=== PATIENT | female | born 1960 | race Caucasian/White ===

== ENCOUNTER 2020-09-22 09:59 | Inpatient (IN) ==
[2020-09-22] MEDS ORDERED: CeFAZolin Syr 2,000MG/20 ML 2,000 MG/20 ML SYRINGE IVPB ONE (10:31)
[2020-09-22] MEDS: Ringers Solution, Lactated 1,000 ML IVC SCH ×3 (10:45→19:50)
[2020-09-22] MEDS ORDERED: Famotidine 20 MG/2 ML VIAL IVP ONE (10:47)
[2020-09-22] MEDS ORDERED: *HR* Methadone 10 MG TABLET PO ONE (10:48)
[2020-09-22] MEDS ORDERED: *HR* Rocuronium Bromide 50 MG/5 ML VIAL ONE (11:50)
[2020-09-22] MEDS ORDERED: Lidocaine HCL 4 ML Topical Solution (Laryng-O-Jet Kit Sterile Pak) TP ONE (11:50)
[2020-09-22] MEDS ORDERED: Ondansetron 4 MG/2 ML VIAL ONE (11:50)
[2020-09-22] MEDS ORDERED: Lidocaine -MPF 2% 2 ML VIAL ONE (11:50)
[2020-09-22] MEDS ORDERED: *HR* FentaNYL (PF) 100 MCG/2 ML VIAL ONE (11:51)
[2020-09-22] MEDS ORDERED: *HR* Remifentanil 1 MG VIAL IVP ONE (11:51)
[2020-09-22] MEDS ORDERED: *HR* Midazolam HCl 2 MG/2 ML VIAL ONE (11:52)
[2020-09-22] MEDS ORDERED: *HR* Propofol 200 MG/20 ML VIAL IVP ONE (11:52)
[2020-09-22] MEDS ORDERED: *HR* HYDROmorphone PF 0.5 MG/0.5 ML SYRINGE IVP PRN (12:15)
[2020-09-22] MEDS ORDERED: Ondansetron 4 MG/2 ML VIAL IVP PRN ×2 (12:15→18:35)
[2020-09-22] MEDS ORDERED: EPHEDrine 50 MG/ML VIAL ONE (14:27)
[2020-09-22] MEDS ORDERED: Bacitracin 50,000 UNIT, Polymyxin B Sulfate 500,000 UNIT, Sodium Chloride IRRigation 1,... IR ONE (14:35)
[2020-09-22] MEDS ORDERED: *HR* Vasopressin 20 UNIT/ML VIAL ONE (14:42)
[2020-09-22] MEDS ORDERED: Neostigmine Methylsulfate 3 MG/3 ML SYRINGE ONE (16:21)
[2020-09-22] MEDS ORDERED: flumazeniL 0.5 MG/5 ML VIAL IVP ONE (17:29)
[2020-09-22] MEDS ORDERED: Sugammadex Sodium 200 MG/2 ML VIAL IV ONE (17:41)
[2020-09-22] MEDS ORDERED: Naloxone 0.4 MG/ML INJ IVP PRN (18:35)
[2020-09-22] MEDS ORDERED: *HR* OxyCODONE Immed Rel 5 MG TABLET PO PRN (18:35)
[2020-09-22] MEDS ORDERED: Acetaminophen 325 MG TABLET PO PRN (18:35)
[2020-09-22] MEDS ORDERED: *HR* HYDROcodone/Acet 5/325 mg TABLET PO PRN (18:35)
[2020-09-22] MEDS: Pregabalin 75 MG CAPSULE PO SCH (19:33)
[2020-09-23 01:09] LABS: Basophils % 0.2 %; Immature Granulocytes % 0.3 % (0-4); Monocytes % 3.6 %
[2020-09-23 01:11] LABS: Hematocrit 31.5 % (35.3-44.9); Immature Platelets 5.8 % (1.1-6.1); Lymphocytes # 0.8 K/mcL (0.6-4.6); Lymphocytes % 13.1 %; Mean Corpuscular HGB Conc 31.7 g/dL (31.6-35.5); Mean Corpuscular Hemoglobin 29.7 pg (28.0-33.3); Mean Corpuscular Volume 93.5 fL (83.0-100.0); Mean Platelet Volume 11.8 fL (9.4-12.4); Monocytes # 0.2 K/mcL (0.0-1.3); Neutrophils # 4.9 K/mcL (1.6-8.9); Red Blood Count 3.37 M/mcL (3.82-4.97); Red Cell Distribution Width 15.6 % (11.5-14.5); Segmented Neutrophils % 82.8 %; White Blood Count 5.9 K/mcL (4.3-11.1)
[2020-09-23 01:12] LABS: Platelet Count 55 K/mcL (140-400)
[2020-09-23 01:27] LABS: BUN/Creatinine Ratio 19 (6-26); Blood Urea Nitrogen 16 mg/dL (8-23); Calcium 8.6 mg/dL (8.6-10.3); Carbon Dioxide 19 mEq/L (23-29); Chloride 106 mEq/L (98-107); Glucose 220 mg/dL (70-105); Osmolality,Calculated 290 (280-300); Potassium 4.6 mEq/L (3.5-5.1); Sodium 136 mEq/L (136-145); eGFR For African Americans > 60 (> 60); eGFR For Non-African Americans > 60 (> 60)
[2020-09-23] MEDS: CeFAZolin 2 GM/120 ML BAG IVPB SCH ×2 (01:31→11:08)
[2020-09-23] MEDS: Ringers Solution, Lactated 1,000 ML IVC SCH (06:16)
[2020-09-23] MEDS ORDERED: Isovue-370 500 ML BOTTLE IVP ONE (08:05)
[2020-09-23] MEDS: Pregabalin 75 MG CAPSULE PO SCH ×2 (09:20→22:59)
[2020-09-23] MEDS: *HR* Metformin 500 MG TABLET PO SCH ×2 (09:20→17:42)
[2020-09-23 12:07] LABS: Albumin 2.9 g/dL (3.5-5.7); Albumin/Globulin Ratio 0.9 (1.1-2.2); Bilirubin,Direct 0.9 mg/dL (0.0-0.2); Bilirubin,Indirect 1.4 mg/dL (0.0-1.0); Bilirubin,Total 2.3 mg/dL (0.3-1.0); Globulin 3.2 g/dL (2.4-3.5); Total Protein 6.1 g/dL (6.4-8.9)
[2020-09-24] MEDS: *HR* Metformin 500 MG TABLET PO SCH ×2 (09:13→16:36)
[2020-09-24] MEDS: Pregabalin 75 MG CAPSULE PO SCH ×2 (09:13→20:16)
[2020-09-24 09:19] LABS: Hemoglobin 9.7 g/dL (11.5-15.4); Immature Granulocytes % 0.5 % (0-4); Mean Corpuscular Volume 92.6 fL (83.0-100.0); Red Cell Distribution Width 15.9 % (11.5-14.5)
[2020-09-24 09:21] LABS: Basophils % 0.4 %; Eosinophils # 0.1 K/mcL (0.0-0.6); Eosinophils % 1.3 %; Immature Platelets 5.5 % (1.1-6.1); Lymphocytes # 1.3 K/mcL (0.6-4.6); Mean Corpuscular HGB Conc 32.3 g/dL (31.6-35.5); Mean Corpuscular Hemoglobin 29.9 pg (28.0-33.3); Mean Platelet Volume 12.2 fL (9.4-12.4); Monocytes % 12.2 %; Neutrophils # 5.8 K/mcL (1.6-8.9); Red Blood Count 3.24 M/mcL (3.82-4.97); Segmented Neutrophils % 69.6 %; White Blood Count 8.3 K/mcL (4.3-11.1)
[2020-09-24 09:24] LABS: Platelet Count 63 K/mcL (140-400)
[2020-09-24 09:37] LABS: BUN/Creatinine Ratio 18 (6-26); Blood Urea Nitrogen 17 mg/dL (8-23); Calcium 8.6 mg/dL (8.6-10.3); Carbon Dioxide 26 mEq/L (23-29); Chloride 109 mEq/L (98-107); Glucose 132 mg/dL (70-105); Osmolality,Calculated 295 (280-300); Potassium 3.8 mEq/L (3.5-5.1); Sodium 141 mEq/L (136-145); eGFR For African Americans > 60 (> 60); eGFR For Non-African Americans > 60 (> 60)
[2020-09-24 11:08] LABS: Bilirubin,Urine Negative (Negative); Blood,Urine Negative (Negative); Clarity,Urine Clear (Clear); Color,Urine Yellow (Yellow); Glucose,Urine (UA) Normal (Normal); Ketones,Urine Negative (Negative); Leukocyte Esterase,Urine Negative (Negative); Nitrite,Urine Negative (Negative); Protein,Urine Negative (Neg-Trace); Specific Gravity,Urine 1.024 (1.010-1.025); Urobilinogen,Urine Normal (Normal)
[2020-09-24 12:05] LABS: Folate 14.8 ng/mL (3.0-16.0)
[2020-09-25] MEDS: Pregabalin 75 MG CAPSULE PO SCH ×2 (07:59→22:32)
[2020-09-25] MEDS: *HR* Metformin 500 MG TABLET PO SCH ×2 (07:59→16:27)
[2020-09-26] MEDS: Ringers Solution, Lactated 1,000 ML IVC SCH ×3 (07:29→14:11)
[2020-09-26] MEDS: Pregabalin 75 MG CAPSULE PO SCH ×2 (07:57→19:44)
[2020-09-26] MEDS: *HR* Metformin 500 MG TABLET PO SCH ×2 (07:57→17:04)
[2020-09-27] MEDS: Ringers Solution, Lactated 1,000 ML IVC SCH ×2 (07:13→08:05)
[2020-09-27] MEDS: *HR* Metformin 500 MG TABLET PO SCH (08:12)
[2020-09-27] MEDS: Pregabalin 75 MG CAPSULE PO SCH (08:13)
[2020-09-27 12:36] VITALS: BP 104/66
== END 2020-09-27 15:30 | DRG 517 ==
LOC: SAMDAY 09:59 → 3NENU 09:59
PROVIDERS: ADMIT Orthopaedic Surgery Orthopaedic Surgery of the Spine; ATTEND Orthopaedic Surgery Orthopaedic Surgery of the Spine

== ENCOUNTER 2021-07-09 16:31 | Inpatient (IN) ==
[2021-07-09] MEDS ORDERED: Isovue-370 500 ML BOTTLE IVP ONE (16:53)
[2021-07-09 17:17] LABS: Hemoglobin 11.9 g/dL (11.5-15.4); Red Cell Distribution Width 17.6 % (11.5-14.5); White Blood Count 5.9 K/mcL (4.3-11.1)
[2021-07-09 17:19] LABS: Hematocrit 36.7 % (35.3-44.9); Immature Platelets 4.1 % (1.1-6.1); Mean Corpuscular HGB Conc 32.4 g/dL (31.6-35.5); Mean Corpuscular Hemoglobin 33.4 pg (28.0-33.3); Mean Corpuscular Volume 103.1 fL (83.0-100.0); Mean Platelet Volume 10.8 fL (9.4-12.4); Red Blood Count 3.56 M/mcL (3.82-4.97)
[2021-07-09 17:28] LABS: INR 1.4; Prothrombin Time 15.2 Seconds (9.4-12.1)
[2021-07-09 17:31] LABS: Activated Partial Thrombo Time 32.3 Seconds (26.0-36.0)
[2021-07-09 17:48] LABS: BUN/Creatinine Ratio 18 (6-26); Blood Urea Nitrogen 25 mg/dL (8-23); Calcium 8.9 mg/dL (8.6-10.3); Carbon Dioxide 24 mEq/L (23-29); Chloride 102 mEq/L (98-107); Ethanol < 10 mg/dL (Less than 10); Glucose 189 mg/dL (70-105); Osmolality,Calculated 297 (280-300); Potassium 3.6 mEq/L (3.5-5.1); Sodium 139 mEq/L (136-145); Troponin I < 0.03 ng/mL (< 0.04); eGFR For African Americans 47 (> 60); eGFR For Non-African Americans 39 (> 60)
[2021-07-09 17:53] LABS: Bilirubin,Urine Negative (Negative); Blood,Urine Negative (Negative); Clarity,Urine Clear (Clear); Color,Urine Yellow (Yellow); Glucose,Urine (UA) Normal (Normal); Ketones,Urine Negative (Negative); Leukocyte Esterase,Urine Negative (Negative); Nitrite,Urine Negative (Negative); Protein,Urine Negative (Neg-Trace); Specific Gravity,Urine 1.013 (1.010-1.025); Urobilinogen,Urine Normal (Normal)
[2021-07-09] MEDS ORDERED: 0.9 % Sodium Chloride 1,000 ML IVC ONE (18:03)
[2021-07-09] MEDS ORDERED: Aspirin 81 MG TAB.CHEW PO STA (21:46)
[2021-07-09] MEDS ORDERED: Naloxone 0.4 MG/ML INJ IVP PRN (23:19)
[2021-07-09] MEDS ORDERED: D5% in Water 1,000 ML IVC PRN (23:30)
[2021-07-09] MEDS ORDERED: Dextrose 4 GM Chewable Tablets PO PRN ×2 (23:30)
[2021-07-09] MEDS ORDERED: *HR* Dextrose 50 % in Water (Syg) 50 ML SYRINGE IVP PRN (23:30)
[2021-07-10] MEDS ORDERED: Albumin 25% 25gram/100mL 25 GM/100 ML IV.SOLN IVPB ONE (00:21)
[2021-07-10] MEDS ORDERED: Lactulose Oral Soln 20 GM/30 ML UDC PO SCH (00:45)
[2021-07-10] MEDS: Insulin LISPRO 300 UNITS/3 ML VIAL SUBQ SCH ×4 (01:10→17:56)
[2021-07-10 03:53] LABS: Hematocrit 29.6 % (35.3-44.9); Mean Corpuscular HGB Conc 33.4 g/dL (31.6-35.5); Mean Corpuscular Volume 101.7 fL (83.0-100.0); Mean Platelet Volume 11.2 fL (9.4-12.4); Red Blood Count 2.91 M/mcL (3.82-4.97); Red Cell Distribution Width 17.7 % (11.5-14.5); White Blood Count 4.2 K/mcL (4.3-11.1)
[2021-07-10 03:54] LABS: Hemoglobin 9.9 g/dL (11.5-15.4); Platelet Count 52 K/mcL (140-400)
[2021-07-10 04:09] LABS: Calcium 8.7 mg/dL (8.6-10.3); Magnesium 1.8 mg/dL (1.6-2.6); Phosphorous 3.1 mg/dL (2.7-4.5); Potassium 3.4 mEq/L (3.5-5.1)
[2021-07-10 04:34] LABS: Folate 21.4 ng/mL (3.0-16.0)
[2021-07-10] MEDS ORDERED: Aspirin 81 MG TAB.CHEW PO SCH (09:00)
[2021-07-10] MEDS: Lactulose Oral Soln 20 GM/30 ML UDC PO SCH ×2 (09:43→20:21)
[2021-07-10] MEDS: Pregabalin 75 MG CAPSULE PO SCH ×2 (09:43→20:21)
[2021-07-10 13:18] LABS: Albumin 2.9 g/dL (3.5-5.7); Albumin/Globulin Ratio 1.1 (1.1-2.2); Bilirubin,Direct 1.1 mg/dL (0.0-0.2); Bilirubin,Indirect 2.1 mg/dL (0.0-1.0); Bilirubin,Total 3.2 mg/dL (0.3-1.0); Globulin 2.6 g/dL (2.4-3.5); Total Protein 5.5 g/dL (6.4-8.9)
[2021-07-11] MEDS: Insulin LISPRO 300 UNITS/3 ML VIAL SUBQ SCH ×4 (01:01→19:06)
[2021-07-11 03:13] LABS: Basophils % 0.6 %; Immature Granulocytes % 0.2 % (0-4); Red Blood Count 3.14 M/mcL (3.82-4.97)
[2021-07-11 03:15] LABS: Eosinophils # 0.2 K/mcL (0.0-0.6); Eosinophils % 4.5 %; Hematocrit 32.1 % (35.3-44.9); Hemoglobin 10.4 g/dL (11.5-15.4); Immature Platelets 4.1 % (1.1-6.1); Lymphocytes % 21.6 %; Mean Corpuscular HGB Conc 32.4 g/dL (31.6-35.5); Mean Corpuscular Hemoglobin 33.1 pg (28.0-33.3); Mean Corpuscular Volume 102.2 fL (83.0-100.0); Mean Platelet Volume 10.5 fL (9.4-12.4); Monocytes # 0.7 K/mcL (0.0-1.3); Monocytes % 14.3 %; Neutrophils # 2.8 K/mcL (1.6-8.9); Platelet Count 55 K/mcL (140-400); Red Cell Distribution Width 17.9 % (11.5-14.5); Segmented Neutrophils % 58.8 %; White Blood Count 4.7 K/mcL (4.3-11.1)
[2021-07-11 03:31] LABS: Albumin 2.8 g/dL (3.5-5.7); Bilirubin,Total 3.4 mg/dL (0.3-1.0); Calcium 8.7 mg/dL (8.6-10.3); Globulin 2.7 g/dL (2.4-3.5); Potassium 3.4 mEq/L (3.5-5.1); Total Protein 5.5 g/dL (6.4-8.9)
[2021-07-11] MEDS: Thiamine (B-1) 100 MG TABLET PO SCH (10:16)
[2021-07-11] MEDS: Pregabalin 75 MG CAPSULE PO SCH ×2 (10:16→21:19)
[2021-07-11] MEDS: Lactulose Oral Soln 20 GM/30 ML UDC PO SCH ×2 (10:16→21:19)
[2021-07-11] MEDS: Melatonin 3 MG TABLET PO PRN (21:18)
[2021-07-12] MEDS: Insulin LISPRO 300 UNITS/3 ML VIAL SUBQ SCH ×4 (02:25→16:53)
[2021-07-12] MEDS ORDERED: Acetaminophen 325 MG TABLET PO ONE (03:19)
[2021-07-12] MEDS: Lactulose Oral Soln 20 GM/30 ML UDC PO SCH ×2 (08:06→22:41)
[2021-07-12] MEDS: Thiamine (B-1) 100 MG TABLET PO SCH (08:06)
[2021-07-12] MEDS: Pregabalin 75 MG CAPSULE PO SCH ×2 (08:06→22:40)
[2021-07-12 10:16] LABS: Hemoglobin 11.3 g/dL (11.5-15.4); Immature Granulocytes % 0.4 % (0-4); Mean Corpuscular Volume 101.8 fL (83.0-100.0)
[2021-07-12 10:18] LABS: Basophils % 0.6 %; Eosinophils # 0.3 K/mcL (0.0-0.6); Eosinophils % 6.6 %; Hematocrit 33.6 % (35.3-44.9); Immature Platelets 3.5 % (1.1-6.1); Lymphocytes # 1.1 K/mcL (0.6-4.6); Lymphocytes % 20.5 %; Mean Corpuscular HGB Conc 33.6 g/dL (31.6-35.5); Mean Corpuscular Hemoglobin 34.2 pg (28.0-33.3); Monocytes # 0.7 K/mcL (0.0-1.3); Monocytes % 13.8 %; Red Cell Distribution Width 17.7 % (11.5-14.5); Segmented Neutrophils % 58.1 %; White Blood Count 5.1 K/mcL (4.3-11.1)
[2021-07-12 10:24] LABS: Platelet Count 60 K/mcL (140-400)
[2021-07-12 10:42] LABS: Albumin 2.9 g/dL (3.5-5.7); Bilirubin,Total 3.7 mg/dL (0.3-1.0); Calcium 8.6 mg/dL (8.6-10.3); Globulin 2.8 g/dL (2.4-3.5); Potassium 3.4 mEq/L (3.5-5.1); Total Protein 5.7 g/dL (6.4-8.9)
[2021-07-12 17:16] LABS: Estimated Average Glucose 123 mg/dl; Hemoglobin A1C 5.9 %
[2021-07-12] MEDS: Melatonin 3 MG TABLET PO PRN (22:40)
[2021-07-13 00:41] LABS: Basophils % 0.4 %
[2021-07-13 00:43] LABS: Eosinophils # 0.3 K/mcL (0.0-0.6); Hematocrit 33.1 % (35.3-44.9); Hemoglobin 10.8 g/dL (11.5-15.4); Immature Granulocytes % 0.4 % (0-4); Immature Platelets 3.8 % (1.1-6.1); Lymphocytes # 0.9 K/mcL (0.6-4.6); Mean Corpuscular HGB Conc 32.6 g/dL (31.6-35.5); Mean Corpuscular Hemoglobin 32.7 pg (28.0-33.3); Mean Corpuscular Volume 100.3 fL (83.0-100.0); Mean Platelet Volume 11.1 fL (9.4-12.4); Monocytes # 0.7 K/mcL (0.0-1.3); Monocytes % 13.6 %; Neutrophils # 3.1 K/mcL (1.6-8.9); Red Cell Distribution Width 17.4 % (11.5-14.5); Segmented Neutrophils % 61.6 %
[2021-07-13 00:51] LABS: Platelet Count 49 K/mcL (140-400)
[2021-07-13 00:59] LABS: Alanine Aminotransferase 18 Units/L (7-52); Albumin 2.6 g/dL (3.5-5.7); Albumin/Globulin Ratio 0.9 (1.1-2.2); Alkaline Phosphatase 104 Units/L (34-104); Aspartate Amino Transferase 36 Units/L (13-39); BUN/Creatinine Ratio 13 (6-26); Bilirubin,Total 3.3 mg/dL (0.3-1.0); Blood Urea Nitrogen 14 mg/dL (8-23); Calcium 8.7 mg/dL (8.6-10.3); Carbon Dioxide 27 mEq/L (23-29); Chloride 105 mEq/L (98-107); Globulin 2.8 g/dL (2.4-3.5); Glucose 156 mg/dL (70-105); Osmolality,Calculated 292 (280-300); Potassium 3.2 mEq/L (3.5-5.1); Sodium 139 mEq/L (136-145); Total Protein 5.4 g/dL (6.4-8.9); eGFR For African Americans > 60 (> 60); eGFR For Non-African Americans 50 (> 60)
[2021-07-13] MEDS: Insulin LISPRO 300 UNITS/3 ML VIAL SUBQ SCH ×4 (03:05→16:47)
[2021-07-13] MEDS ORDERED: Potassium Chloride Elixir 20 MEQ/15 ML UDC PO ONE (07:03)
[2021-07-13] MEDS: Thiamine (B-1) 100 MG TABLET PO SCH (07:33)
[2021-07-13] MEDS: Lactulose Oral Soln 20 GM/30 ML UDC PO SCH ×2 (07:33→19:51)
[2021-07-13] MEDS: Pregabalin 75 MG CAPSULE PO SCH ×2 (07:33→19:51)
[2021-07-14] MEDS: Insulin LISPRO 300 UNITS/3 ML VIAL SUBQ SCH ×3 (03:36→12:25)
[2021-07-14] MEDS: Thiamine (B-1) 100 MG TABLET PO SCH (09:40)
[2021-07-14] MEDS: Pregabalin 75 MG CAPSULE PO SCH (09:40)
[2021-07-14] MEDS: Lactulose Oral Soln 20 GM/30 ML UDC PO SCH (09:40)
[2021-07-14] MEDS ORDERED: Acetaminophen 325 MG TABLET PO ONE (10:09)
[2021-07-14 15:35] VITALS: BP 100/65; PULSE 87; TEMP 97.9; O2SAT 92
[2021-07-14 16:11] LABS: Influenza A PCR Negative (Negative); Influenza B PCR Negative (Negative); Resp. Syncytial Virus PCR Negative (Negative)
[2021-07-14 16:12] LABS: SARS-CoV-2 by PCR (In House) Negative (Negative)
== END 2021-07-14 17:40 | DRG 441 ==
LOC: 3BNU 16:31 → EMEROOARM 16:31 → SUATTDRO 22:15 → 3BNU 22:52 → SUATTDRO 07-11 13:30
PROVIDERS: ADMIT Internal Medicine; ATTEND Internal Medicine

== ENCOUNTER 2021-09-26 17:27 | Inpatient (IN) ==
[2021-09-26 19:20] LABS: Hemoglobin 10.6 g/dL (11.5-15.4); Mean Corpuscular HGB Conc 33.1 g/dL (31.6-35.5); Mean Corpuscular Hemoglobin 31.6 pg (28.0-33.3); Mean Corpuscular Volume 95.5 fL (83.0-100.0); Red Blood Count 3.35 M/mcL (3.82-4.97)
[2021-09-26 19:22] LABS: Basophils % 0.1 %; Eosinophils # 0.1 K/mcL (0.0-0.6); Immature Granulocytes % 0.5 % (0-4); Immature Platelets 4.7 % (1.1-6.1); Lymphocytes # 0.7 K/mcL (0.6-4.6); Lymphocytes % 8.7 %; Mean Platelet Volume 10.9 fL (9.4-12.4); Monocytes # 0.9 K/mcL (0.0-1.3); Monocytes % 11.6 %; Neutrophils # 6.3 K/mcL (1.6-8.9); Red Cell Distribution Width 14.9 % (11.5-14.5); Segmented Neutrophils % 78.1 %
[2021-09-26 19:23] LABS: Platelet Count 88 K/mcL (140-400)
[2021-09-26 19:40] LABS: Calcium 8.9 mg/dL (8.6-10.3); Potassium 3.9 mEq/L (3.5-5.1)
[2021-09-26 20:35] LABS: VBG HCO3 23 mEq/L (21-27); VBG PCO2 33 mmHg (41-51); VBG PH 7.45 pH Units (7.32-7.42); VBG PO2 136 mmHg (25-50)
[2021-09-26] MEDS ORDERED: Isovue-370 500 ML BOTTLE IVP ONE (20:43)
[2021-09-26] MEDS ORDERED: 0.9 % Sodium Chloride 2,000 ML IV ONE (20:44)
[2021-09-26 21:19] LABS: Albumin 2.9 g/dL (3.5-5.7); Albumin/Globulin Ratio 0.8 (1.1-2.2); Bilirubin,Indirect 3.7 mg/dL (0.0-1.0); Bilirubin,Total 5.7 mg/dL (0.3-1.0); Globulin 3.8 g/dL (2.4-3.5); Total Protein 6.7 g/dL (6.4-8.9)
[2021-09-26 21:23] LABS: INR 1.6
[2021-09-26 21:26] LABS: Activated Partial Thrombo Time 28.4 Seconds (26.0-36.0)
[2021-09-27 00:13] LABS: Influenza A PCR Negative (Negative); Influenza B PCR Negative (Negative); Resp. Syncytial Virus PCR Negative (Negative)
[2021-09-27 00:14] LABS: SARS-CoV-2 by PCR (In House) Negative (Negative)
[2021-09-27] MEDS ORDERED: Naloxone 0.4 MG/ML INJ IVP PRN (01:24)
[2021-09-27] MEDS ORDERED: Acetaminophen 325 MG TABLET PO PRN (01:24)
[2021-09-27] MEDS ORDERED: Melatonin 3 MG TABLET PO PRN (01:24)
[2021-09-27] MEDS ORDERED: Ondansetron 4 MG/2 ML VIAL IVP PRN (01:24)
[2021-09-27] MEDS ORDERED: 0.9 % Sodium Chloride 1,000 ML IVC SCH (01:30)
[2021-09-27 03:13] LABS: Eosinophils # 0.1 K/mcL (0.0-0.6); Eosinophils % 1.6 %; Hematocrit 28.8 % (35.3-44.9); Hemoglobin 9.4 g/dL (11.5-15.4); Immature Granulocytes % 0.5 % (0-4); Immature Platelets 4.3 % (1.1-6.1); Lymphocytes # 0.5 K/mcL (0.6-4.6); Lymphocytes % 9.4 %; Mean Corpuscular HGB Conc 32.6 g/dL (31.6-35.5); Mean Corpuscular Hemoglobin 31.4 pg (28.0-33.3); Mean Corpuscular Volume 96.3 fL (83.0-100.0); Mean Platelet Volume 11.7 fL (9.4-12.4); Monocytes # 0.6 K/mcL (0.0-1.3); Monocytes % 10.8 %; Neutrophils # 4.4 K/mcL (1.6-8.9); Red Blood Count 2.99 M/mcL (3.82-4.97); Segmented Neutrophils % 77.7 %; White Blood Count 5.7 K/mcL (4.3-11.1)
[2021-09-27 03:19] LABS: INR 1.8; Prothrombin Time 19.7 Seconds (9.4-12.1)
[2021-09-27 03:22] LABS: Platelet Count 61 K/mcL (140-400)
[2021-09-27 03:30] LABS: Albumin 2.4 g/dL (3.5-5.7); Albumin/Globulin Ratio 0.7 (1.1-2.2); Bilirubin,Direct 1.7 mg/dL (0.0-0.2); Bilirubin,Indirect 3.3 mg/dL (0.0-1.0); Calcium 8.4 mg/dL (8.6-10.3); Globulin 3.4 g/dL (2.4-3.5); Phosphorous 2.4 mg/dL (2.7-4.5); Potassium 3.7 mEq/L (3.5-5.1); Total Protein 5.8 g/dL (6.4-8.9)
[2021-09-27] MEDS ORDERED: D5% in Water 1,000 ML IVC PRN (03:43)
[2021-09-27] MEDS ORDERED: *HR* Dextrose 50 % in Water (Syg) 50 ML SYRINGE IVP PRN (03:43)
[2021-09-27] MEDS ORDERED: Dextrose Gel 15 GM/37.5 ML TUBE PO PRN ×2 (03:43)
[2021-09-27] MEDS: Insulin LISPRO 300 UNITS/3 ML VIAL SUBQ SCH ×3 (08:26→16:07)
[2021-09-27 09:17] LABS: Estimated Average Glucose 220 mg/dl; Hemoglobin A1C 9.3 %
[2021-09-27 09:44] LABS: Bacteria,Urine Few per hpf (None-Few); Bilirubin,Urine Negative (Negative); Blood,Urine Trace (Negative); Clarity,Urine Turbid (Clear); Color,Urine Yellow (Yellow); Glucose,Urine (UA) 100 mg/dL (Normal); Hyaline Casts,Urine Few per lpf (None Seen); Ketones,Urine Trace mg/dL (Negative); Leukocyte Esterase,Urine Large (Negative); Mucus,Urine Few per lpf (None-Few); Nitrite,Urine Positive (Negative); Protein,Urine Trace mg/dL (Neg-Trace); Squamous Epithelial Cell,Urine Few per hpf (None-Few); Urobilinogen,Urine Normal (Normal); WBC,Urine TNTC per hpf (0-3)
[2021-09-27] MEDS ORDERED: hydrOXYzine pamoate 25 MG CAPSULE PO PRN (10:10)
[2021-09-27] MEDS ORDERED: Furosemide 40 MG TABLET PO SCH (10:15)
[2021-09-27] MEDS: 0.9 % Sodium Chloride 1,000 ML IVC SCH (12:05)
[2021-09-27] MEDS: Lactulose Oral Soln 20 GM/30 ML UDC PO SCH ×2 (12:06→20:42)
[2021-09-27] MEDS: Insulin DETEMIR 100 UNIT/ML X5UNITS SUBQ SCH ×2 (12:10→20:44)
[2021-09-27] MEDS ORDERED: *HR* Heparin 5,000 UNIT/ML VIAL SQ SCH (18:00)
[2021-09-27] MEDS ORDERED: Insulin LISPRO 300 UNITS/3 ML VIAL SUBQ SCH (21:00)
[2021-09-28 03:28] LABS: Basophils % 0.1 %; Immature Granulocytes % 0.6 % (0-4)
[2021-09-28 03:30] LABS: Eosinophils # 0.3 K/mcL (0.0-0.6); Eosinophils % 3.2 %; Hemoglobin 10.1 g/dL (11.5-15.4); Immature Platelets 4.4 % (1.1-6.1); Lymphocytes # 0.6 K/mcL (0.6-4.6); Lymphocytes % 7.8 %; Mean Corpuscular HGB Conc 32.6 g/dL (31.6-35.5); Mean Corpuscular Hemoglobin 31.4 pg (28.0-33.3); Mean Corpuscular Volume 96.3 fL (83.0-100.0); Mean Platelet Volume 11.3 fL (9.4-12.4); Monocytes # 1.1 K/mcL (0.0-1.3); Monocytes % 13.8 %; Red Blood Count 3.22 M/mcL (3.82-4.97); Red Cell Distribution Width 15.3 % (11.5-14.5); Segmented Neutrophils % 74.5 %
[2021-09-28 03:31] LABS: Platelet Count 72 K/mcL (140-400)
[2021-09-28] MEDS: 0.9 % Sodium Chloride 1,000 ML IVC SCH (03:45)
[2021-09-28 03:51] LABS: Calcium 8.7 mg/dL (8.6-10.3); Magnesium 1.9 mg/dL (1.6-2.6); Phosphorous 2.4 mg/dL (2.7-4.5); Potassium 3.9 mEq/L (3.5-5.1)
[2021-09-28] MEDS: Insulin LISPRO 300 UNITS/3 ML VIAL SUBQ SCH ×4 (09:01→16:56)
[2021-09-28] MEDS: Lactulose Oral Soln 20 GM/30 ML UDC PO SCH ×2 (09:07→21:01)
[2021-09-28] MEDS: cefTRIAXone 1,000 MG in 0.9 % Sodium Chloride 10 ML IVP SCH (09:07)
[2021-09-28] MEDS: Insulin DETEMIR 100 UNIT/ML X5UNITS SUBQ SCH ×2 (09:19→21:01)
[2021-09-28] MEDS ORDERED: Nitroglycerin 0.4 MG TAB.SUBL SL PRN (14:18)
[2021-09-28] MEDS: ALPRAZolam 0.25 MG TABLET PO PRN (14:27)
[2021-09-28] MEDS: Clobetasol Propionate 0.05% 15 GM Cream Tube TP SCH (21:05)
[2021-09-29 03:16] LABS: Basophils % 0.1 %; Eosinophils % 5.4 %; Mean Corpuscular Volume 97.5 fL (83.0-100.0)
[2021-09-29 03:18] LABS: Eosinophils # 0.5 K/mcL (0.0-0.6); Hematocrit 30.6 % (35.3-44.9); Hemoglobin 10.1 g/dL (11.5-15.4); Immature Granulocytes % 0.6 % (0-4); Immature Platelets 5.2 % (1.1-6.1); Lymphocytes # 0.6 K/mcL (0.6-4.6); Mean Corpuscular Hemoglobin 32.2 pg (28.0-33.3); Mean Platelet Volume 11.6 fL (9.4-12.4); Monocytes % 12.2 %; Neutrophils # 6.3 K/mcL (1.6-8.9); Red Blood Count 3.14 M/mcL (3.82-4.97); Red Cell Distribution Width 15.6 % (11.5-14.5); Segmented Neutrophils % 74.7 %; White Blood Count 8.4 K/mcL (4.3-11.1)
[2021-09-29 03:25] LABS: Platelet Count 68 K/mcL (140-400)
[2021-09-29 03:36] LABS: Albumin 2.4 g/dL (3.5-5.7); Albumin/Globulin Ratio 0.7 (1.1-2.2); Bilirubin,Direct 1.5 mg/dL (0.0-0.2); Bilirubin,Indirect 2.6 mg/dL (0.0-1.0); Bilirubin,Total 4.1 mg/dL (0.3-1.0); Globulin 3.3 g/dL (2.4-3.5); Total Protein 5.7 g/dL (6.4-8.9)
[2021-09-29] MEDS: ALPRAZolam 0.25 MG TABLET PO PRN (07:29)
[2021-09-29] MEDS: Lactulose Oral Soln 20 GM/30 ML UDC PO SCH ×2 (07:30→20:57)
[2021-09-29] MEDS: cefTRIAXone 1,000 MG in 0.9 % Sodium Chloride 10 ML IVP SCH (07:30)
[2021-09-29] MEDS: Insulin DETEMIR 100 UNIT/ML X5UNITS SUBQ SCH ×2 (07:34→20:59)
[2021-09-29] MEDS: Insulin LISPRO 300 UNITS/3 ML VIAL SUBQ SCH ×6 (07:38→16:52)
[2021-09-29] MEDS: Clobetasol Propionate 0.05% 15 GM Cream Tube TP SCH (23:27)
[2021-09-30 02:11] LABS: Calcium 8.8 mg/dL (8.6-10.3); Magnesium 2.2 mg/dL (1.6-2.6); Phosphorous 3.4 mg/dL (2.7-4.5); Potassium 4.5 mEq/L (3.5-5.1)
[2021-09-30] MEDS: cefTRIAXone 1,000 MG in 0.9 % Sodium Chloride 10 ML IVP SCH (07:47)
[2021-09-30] MEDS: Lactulose Oral Soln 20 GM/30 ML UDC PO SCH (07:47)
[2021-09-30] MEDS: Insulin DETEMIR 100 UNIT/ML X5UNITS SUBQ SCH (07:55)
[2021-09-30] MEDS: Insulin LISPRO 300 UNITS/3 ML VIAL SUBQ SCH ×4 (07:56→12:53)
[2021-09-30 11:19] VITALS: BP 114/73; PULSE 59; TEMP 97.5; O2SAT 92
[2021-09-30 15:30] LABS: Calcium 8.8 mg/dL (8.6-10.3); Phosphorous 3.5 mg/dL (2.7-4.5); Potassium 4.3 mEq/L (3.5-5.1)
== END 2021-09-30 15:40 | disposition home or self-care (01) | DRG 638 ==
LOC: 3ANU 17:27 → EMEROOARM 17:27 → SUATTDRO 09-27 00:08 → 3ANU 09-27 01:05 → SUATTDRO 09-28 12:13
PROVIDERS: ADMIT Family Medicine; ATTEND Internal Medicine

== ENCOUNTER 2021-10-31 11:51 | Inpatient (IN) ==
[2021-10-31 13:01] LABS: Basophils % 0.4 %; Eosinophils # 0.2 K/mcL (0.0-0.6); Eosinophils % 1.8 %; Hematocrit 31.5 % (35.3-44.9); Hemoglobin 10.1 g/dL (11.5-15.4); Lymphocytes # 0.8 K/mcL (0.6-4.6); Lymphocytes % 7.1 %; Mean Corpuscular HGB Conc 32.1 g/dL (31.6-35.5); Mean Corpuscular Hemoglobin 31.2 pg (28.0-33.3); Mean Corpuscular Volume 97.2 fL (83.0-100.0); Mean Platelet Volume 11.2 fL (9.4-12.4); Monocytes # 0.9 K/mcL (0.0-1.3); Monocytes % 8.5 %; Neutrophils # 8.8 K/mcL (1.6-8.9); Platelet Count 101 K/mcL (140-400); Red Blood Count 3.24 M/mcL (3.82-4.97); Segmented Neutrophils % 81.2 %; White Blood Count 10.8 K/mcL (4.3-11.1)
[2021-10-31 13:22] LABS: INR 1.5; Prothrombin Time 16.4 Seconds (9.4-12.1)
[2021-10-31 13:34] LABS: Alanine Aminotransferase 16 Units/L (7-52); Albumin 2.5 g/dL (3.5-5.7); Albumin/Globulin Ratio 0.7 (1.1-2.2); Alkaline Phosphatase 127 Units/L (34-104); Aspartate Amino Transferase 31 Units/L (13-39); BUN/Creatinine Ratio 14 (6-26); Bilirubin,Total 4.9 mg/dL (0.3-1.0); Blood Urea Nitrogen 22 mg/dL (8-23); Calcium 7.7 mg/dL (8.6-10.3); Carbon Dioxide 17 mEq/L (23-29); Chloride 106 mEq/L (98-107); Globulin 3.7 g/dL (2.4-3.5); Glucose 228 mg/dL (70-105); Lipase 35 Units/L (11-82); Magnesium 2.1 mg/dL (1.6-2.6); Osmolality,Calculated 281 (280-300); Potassium 4.6 mEq/L (3.5-5.1); Sodium 130 mEq/L (136-145); Total Protein 6.2 g/dL (6.4-8.9); Troponin I < 0.03 ng/mL (< 0.04); eGFR For African Americans 41 (> 60); eGFR For Non-African Americans 34 (> 60)
[2021-10-31] MEDS ORDERED: Lidocaine 1% 20 ML MDV INFILT ONE (13:53)
[2021-10-31] MEDS ORDERED: Furosemide 40 MG/4 ML VIAL IVP ONE (14:11)
[2021-10-31 15:23] LABS: RBC,Peritoneal Fluid < 2000 RBC/mcL
[2021-10-31 15:50] LABS: Glucose,Peritoneal Fluid 213 mg/dL (No Ref Range); Total Protein,Peritoneal Fluid < 2.0 g/dL
[2021-10-31] MEDS ORDERED: Naloxone 0.4 MG/ML INJ IVP PRN (15:59)
[2021-10-31] MEDS ORDERED: Melatonin 3 MG TABLET PO PRN (15:59)
[2021-10-31] MEDS ORDERED: Acetaminophen 325 MG TABLET PO PRN (15:59)
[2021-10-31] MEDS ORDERED: Ondansetron ODT 4 MG TAB.RAPDIS SL PRN (15:59)
[2021-10-31] MEDS ORDERED: Dextrose Gel 15 GM/37.5 ML TUBE PO PRN ×2 (16:08)
[2021-10-31] MEDS ORDERED: *HR* Dextrose 50 % in Water (Syg) 50 ML SYRINGE IVP PRN (16:08)
[2021-10-31] MEDS ORDERED: D5% in Water 1,000 ML IVC PRN (16:08)
[2021-10-31 17:23] LABS: Appearance of Peritoneal Fl CLEAR (Clear); Basophils,Peritoneal Fluid 0 %; Eosinophils,Peritoneal Fluid 0 %
[2021-10-31] MEDS: Insulin LISPRO 300 UNITS/3 ML VIAL SUBQ SCH (18:18)
[2021-10-31] MEDS: *HR* Heparin 5,000 UNIT/ML VIAL SQ SCH (18:18)
[2021-10-31] MEDS ORDERED: Albumin 25% 25gram/100mL 25 GM/100 ML IV.SOLN IVPB ONE (20:33)
[2021-10-31] MEDS: Lactulose Oral Soln 20 GM/30 ML UDC PO SCH (21:35)
[2021-10-31] MEDS: Insulin DETEMIR 100 UNIT/ML X5UNITS SUBQ SCH (21:41)
[2021-11-01] MEDS ORDERED: Albumin 25% 25gram/100mL 25 GM/100 ML IV.SOLN IVPB ONE ×3 (02:43→22:53)
[2021-11-01 03:08] LABS: Mean Corpuscular Volume 97.9 fL (83.0-100.0)
[2021-11-01] MEDS ORDERED: 0.9 % Sodium Chloride 500 ML IVC ONE (03:09)
[2021-11-01 03:10] LABS: Basophils % 0.3 %; Eosinophils # 0.1 K/mcL (0.0-0.6); Eosinophils % 1.4 %; Hematocrit 27.4 % (35.3-44.9); Hemoglobin 8.7 g/dL (11.5-15.4); Immature Granulocytes % 0.8 % (0-4); Immature Platelets 4.7 % (1.1-6.1); Lymphocytes % 11.4 %; Mean Corpuscular HGB Conc 31.8 g/dL (31.6-35.5); Mean Corpuscular Hemoglobin 31.1 pg (28.0-33.3); Mean Platelet Volume 10.9 fL (9.4-12.4); Monocytes # 0.9 K/mcL (0.0-1.3); Monocytes % 10.3 %; Neutrophils # 6.5 K/mcL (1.6-8.9); Red Cell Distribution Width 16.9 % (11.5-14.5); Segmented Neutrophils % 75.8 %; White Blood Count 8.6 K/mcL (4.3-11.1)
[2021-11-01 03:17] LABS: Platelet Count 71 K/mcL (140-400)
[2021-11-01 03:22] LABS: Albumin 2.5 g/dL (3.5-5.7); Albumin/Globulin Ratio 0.8 (1.1-2.2); Bilirubin,Direct 2.1 mg/dL (0.0-0.2); Bilirubin,Indirect 2.7 mg/dL (0.0-1.0); Bilirubin,Total 4.8 mg/dL (0.3-1.0); Globulin 3.2 g/dL (2.4-3.5); Total Protein 5.7 g/dL (6.4-8.9)
[2021-11-01 03:24] LABS: Calcium 8.1 mg/dL (8.6-10.3); Magnesium 2.1 mg/dL (1.6-2.6); Phosphorous 3.4 mg/dL (2.7-4.5)
[2021-11-01] MEDS: *HR* Heparin 5,000 UNIT/ML VIAL SQ SCH ×2 (06:45→18:16)
[2021-11-01] MEDS: Furosemide 40 MG/4 ML VIAL IVP SCH ×2 (08:36→19:30)
[2021-11-01] MEDS: Insulin LISPRO 300 UNITS/3 ML VIAL SUBQ SCH ×3 (08:36→18:31)
[2021-11-01] MEDS: Lactulose Oral Soln 20 GM/30 ML UDC PO SCH ×2 (08:36→21:48)
[2021-11-01] MEDS ORDERED: Spironolactone 25 MG TABLET PO SCH (09:00)
[2021-11-01] MEDS ORDERED: Furosemide 40 MG/4 ML VIAL IVP SCH (09:00)
[2021-11-01] MEDS: Insulin DETEMIR 100 UNIT/ML X5UNITS SUBQ SCH ×2 (10:46→21:47)
[2021-11-01] MEDS ORDERED: Perflutren Lipid Microsphere 1.3 ML in 0.9 % Sodium Chloride 8.7 ML IVP PRN (16:27)
[2021-11-01 20:04] LABS: Thyroid Stimulating Hormone 0.867 mcIU/mL (0.340-5.600)
[2021-11-02 02:54] LABS: Hematocrit 25.8 % (35.3-44.9); Hemoglobin 8.4 g/dL (11.5-15.4); Mean Corpuscular HGB Conc 32.6 g/dL (31.6-35.5)
[2021-11-02 02:56] LABS: Immature Platelets 5.6 % (1.1-6.1); Mean Corpuscular Hemoglobin 31.2 pg (28.0-33.3); Mean Corpuscular Volume 95.9 fL (83.0-100.0); Mean Platelet Volume 11.7 fL (9.4-12.4); Red Blood Count 2.69 M/mcL (3.82-4.97); White Blood Count 6.9 K/mcL (4.3-11.1)
[2021-11-02 03:13] LABS: Magnesium 2.1 mg/dL (1.6-2.6); Phosphorous 3.4 mg/dL (2.7-4.5); Potassium 3.7 mEq/L (3.5-5.1)
[2021-11-02] MEDS: *HR* Heparin 5,000 UNIT/ML VIAL SQ SCH ×2 (05:59→16:45)
[2021-11-02] MEDS: Insulin LISPRO 300 UNITS/3 ML VIAL SUBQ SCH ×4 (07:25→22:02)
[2021-11-02] MEDS: Lactulose Oral Soln 20 GM/30 ML UDC PO SCH ×2 (09:37→21:54)
[2021-11-02] MEDS: Insulin DETEMIR 100 UNIT/ML X5UNITS SUBQ SCH ×2 (09:39→22:05)
[2021-11-02] MEDS: Albumin 25% 25gram/100mL 25 GM/100 ML IV.SOLN IVPB SCH ×2 (16:43→23:27)
[2021-11-02] MEDS: hydrOXYzine pamoate 25 MG CAPSULE PO PRN (21:59)
[2021-11-03 05:29] LABS: Red Cell Distribution Width 17.2 % (11.5-14.5)
[2021-11-03 05:30] LABS: Hematocrit 25.5 % (35.3-44.9); Hemoglobin 8.3 g/dL (11.5-15.4); Immature Platelets 4.7 % (1.1-6.1); Mean Corpuscular HGB Conc 32.5 g/dL (31.6-35.5); Mean Corpuscular Hemoglobin 31.4 pg (28.0-33.3); Mean Corpuscular Volume 96.6 fL (83.0-100.0); Mean Platelet Volume 11.1 fL (9.4-12.4); Red Blood Count 2.64 M/mcL (3.82-4.97); White Blood Count 5.2 K/mcL (4.3-11.1)
[2021-11-03] MEDS: *HR* Heparin 5,000 UNIT/ML VIAL SQ SCH ×2 (05:30→18:09)
[2021-11-03 05:51] LABS: Albumin 2.9 g/dL (3.5-5.7); Calcium 7.7 mg/dL (8.6-10.3); Magnesium 2.1 mg/dL (1.6-2.6); Phosphorous 4.6 mg/dL (2.7-4.5); Potassium 3.9 mEq/L (3.5-5.1)
[2021-11-03] MEDS: Lactulose Oral Soln 20 GM/30 ML UDC PO SCH ×2 (09:24→22:12)
[2021-11-03] MEDS: Albumin 25% 25gram/100mL 25 GM/100 ML IV.SOLN IVPB SCH (09:26)
[2021-11-03] MEDS: Insulin DETEMIR 100 UNIT/ML X5UNITS SUBQ SCH ×2 (09:27→22:02)
[2021-11-03] MEDS: Insulin LISPRO 300 UNITS/3 ML VIAL SUBQ SCH ×4 (09:27→22:01)
[2021-11-04] MEDS: hydrOXYzine pamoate 25 MG CAPSULE PO PRN ×2 (00:20→21:26)
[2021-11-04 01:35] LABS: Mean Corpuscular HGB Conc 32.3 g/dL (31.6-35.5); Mean Corpuscular Hemoglobin 31.3 pg (28.0-33.3)
[2021-11-04 01:36] LABS: Hematocrit 25.7 % (35.3-44.9); Hemoglobin 8.3 g/dL (11.5-15.4); Immature Platelets 3.7 % (1.1-6.1); Mean Platelet Volume 11.2 fL (9.4-12.4); Red Blood Count 2.65 M/mcL (3.82-4.97); Red Cell Distribution Width 17.1 % (11.5-14.5); White Blood Count 5.3 K/mcL (4.3-11.1)
[2021-11-04 01:55] LABS: Calcium 8.2 mg/dL (8.6-10.3); Magnesium 2.2 mg/dL (1.6-2.6); Phosphorous 3.4 mg/dL (2.7-4.5); Potassium 3.6 mEq/L (3.5-5.1)
[2021-11-04] MEDS: *HR* Heparin 5,000 UNIT/ML VIAL SQ SCH ×2 (05:22→17:39)
[2021-11-04] MEDS: Lactulose Oral Soln 20 GM/30 ML UDC PO SCH ×2 (08:12→21:27)
[2021-11-04] MEDS: Insulin LISPRO 300 UNITS/3 ML VIAL SUBQ SCH ×4 (08:19→21:17)
[2021-11-04] MEDS: Insulin DETEMIR 100 UNIT/ML X5UNITS SUBQ SCH ×2 (08:19→21:28)
[2021-11-05 01:57] LABS: Red Cell Distribution Width 17.2 % (11.5-14.5)
[2021-11-05 01:58] LABS: Hematocrit 27.5 % (35.3-44.9); Hemoglobin 8.8 g/dL (11.5-15.4); Immature Platelets 3.4 % (1.1-6.1); Mean Corpuscular Hemoglobin 31.5 pg (28.0-33.3); Mean Corpuscular Volume 98.6 fL (83.0-100.0); Mean Platelet Volume 10.9 fL (9.4-12.4); Red Blood Count 2.79 M/mcL (3.82-4.97); White Blood Count 5.2 K/mcL (4.3-11.1)
[2021-11-05 02:18] LABS: Albumin 2.7 g/dL (3.5-5.7); Calcium 8.1 mg/dL (8.6-10.3)
[2021-11-05] MEDS: *HR* Heparin 5,000 UNIT/ML VIAL SQ SCH (06:14)
[2021-11-05] MEDS: Insulin LISPRO 300 UNITS/3 ML VIAL SUBQ SCH ×3 (08:34→18:00)
[2021-11-05] MEDS: Insulin DETEMIR 100 UNIT/ML X5UNITS SUBQ SCH (08:44)
[2021-11-05] MEDS: Lactulose Oral Soln 20 GM/30 ML UDC PO SCH (08:45)
[2021-11-05 17:06] VITALS: BP 92/57; PULSE 65; TEMP 97.6; O2SAT 97
== END 2021-11-05 18:56 | disposition home health service (06) | DRG 433 ==
LOC: EMEROOARM 11:51 → 3ANU 11:51 → SUATTDRO 15:06 → 3ANU 16:19 → SUATTDRO 11-01 22:21
PROVIDERS: ADMIT General Practice; ATTEND Internal Medicine

== ENCOUNTER 2021-11-14 10:34 | Inpatient (IN) ==
[2021-11-14] MEDS ORDERED: Naloxone 0.4 MG/ML INJ IVP PRN (11:13)
[2021-11-14] MEDS ORDERED: Ondansetron 4 MG/2 ML VIAL IVP PRN (11:13)
[2021-11-14] MEDS ORDERED: *HR* Dextrose 50 % in Water (Syg) 50 ML SYRINGE IVP PRN (11:15)
[2021-11-14] MEDS ORDERED: D5% in Water 1,000 ML IVC PRN (11:15)
[2021-11-14] MEDS ORDERED: Dextrose Gel 15 GM/37.5 ML TUBE PO PRN ×2 (11:15)
[2021-11-14] MEDS ORDERED: Insulin LISPRO 300 UNITS/3 ML VIAL SUBQ SCH (12:00)
[2021-11-14] MEDS: Lactulose Oral Soln 20 GM/30 ML UDC PO SCH ×2 (13:49→21:39)
[2021-11-14] MEDS: Insulin LISPRO 300 UNITS/3 ML VIAL SUBQ SCH ×2 (17:33→21:26)
[2021-11-15 05:41] LABS: Immature Granulocytes % 0.4 % (0-4); Mean Corpuscular Volume 99.7 fL (83.0-100.0)
[2021-11-15 05:43] LABS: Basophils # 0.1 K/mcL (0.0-0.2); Eosinophils # 0.4 K/mcL (0.0-0.6); Eosinophils % 5.6 %; Hematocrit 28.9 % (35.3-44.9); Hemoglobin 9.2 g/dL (11.5-15.4); Immature Platelets 4.1 % (1.1-6.1); Lymphocytes # 1.3 K/mcL (0.6-4.6); Lymphocytes % 18.8 %; Mean Corpuscular HGB Conc 31.8 g/dL (31.6-35.5); Mean Corpuscular Hemoglobin 31.7 pg (28.0-33.3); Monocytes % 14.1 %; Neutrophils # 4.2 K/mcL (1.6-8.9); Red Cell Distribution Width 18.3 % (11.5-14.5); Segmented Neutrophils % 60.1 %
[2021-11-15 05:44] LABS: Platelet Count 66 K/mcL (140-400)
[2021-11-15 05:46] LABS: INR 1.6; Prothrombin Time 17.4 Seconds (9.4-12.1)
[2021-11-15 08:01] LABS: Albumin 2.5 g/dL (3.5-5.7); Albumin/Globulin Ratio 0.9 (1.1-2.2); Bilirubin,Direct 1.5 mg/dL (0.0-0.2); Bilirubin,Indirect 2.9 mg/dL (0.0-1.0); Bilirubin,Total 4.4 mg/dL (0.3-1.0); Calcium 8.3 mg/dL (8.6-10.3); Globulin 2.9 g/dL (2.4-3.5); Magnesium 2.1 mg/dL (1.6-2.6); Phosphorous 3.5 mg/dL (2.7-4.5); Potassium 4.4 mEq/L (3.5-5.1); Total Protein 5.4 g/dL (6.4-8.9)
[2021-11-15] MEDS: Insulin LISPRO 300 UNITS/3 ML VIAL SUBQ SCH ×4 (09:29→20:28)
[2021-11-15] MEDS: Lactulose Oral Soln 20 GM/30 ML UDC PO SCH ×2 (09:30→20:40)
[2021-11-15] MEDS ORDERED: cefTRIAXone 2,000 MG in 0.9 % Sodium Chloride 20 ML IVP SCH (10:00)
[2021-11-15] MEDS ORDERED: Albumin 25% 25gram/100mL 25 GM/100 ML IV.SOLN IVPB ONE (15:01)
[2021-11-15 18:52] LABS: Glucose,Peritoneal Fluid 179 mg/dL (No Ref Range); LDH,Peritoneal Fluid 27 Units/L (No Ref Range); Total Protein,Peritoneal Fluid < 2.0 g/dL
[2021-11-15 20:04] LABS: RBC,Peritoneal Fluid < 2000 RBC/mcL
[2021-11-15] MEDS: Nystatin POWDER 30 GM BOTTLE TP SCH ×2 (20:40→20:41)
[2021-11-15 22:16] LABS: Appearance of Peritoneal Fl CLEAR (Clear)
[2021-11-15 22:18] LABS: Basophils,Peritoneal Fluid 0 %; Eosinophils,Peritoneal Fluid 0 %
[2021-11-16 06:08] LABS: Red Cell Distribution Width 18.3 % (11.5-14.5)
[2021-11-16 06:10] LABS: Basophils # 0.1 K/mcL (0.0-0.2); Eosinophils # 0.4 K/mcL (0.0-0.6); Eosinophils % 8.4 %; Hematocrit 27.4 % (35.3-44.9); Hemoglobin 8.9 g/dL (11.5-15.4); Immature Granulocytes % 0.6 % (0-4); Immature Platelets 4.6 % (1.1-6.1); Lymphocytes # 1.1 K/mcL (0.6-4.6); Lymphocytes % 22.6 %; Mean Corpuscular HGB Conc 32.5 g/dL (31.6-35.5); Mean Corpuscular Hemoglobin 31.4 pg (28.0-33.3); Mean Corpuscular Volume 96.8 fL (83.0-100.0); Mean Platelet Volume 10.5 fL (9.4-12.4); Monocytes # 0.7 K/mcL (0.0-1.3); Monocytes % 14.2 %; Neutrophils # 2.7 K/mcL (1.6-8.9); Red Blood Count 2.83 M/mcL (3.82-4.97); Segmented Neutrophils % 53.2 %
[2021-11-16 06:28] LABS: Platelet Count 57 K/mcL (140-400)
[2021-11-16 06:49] LABS: Calcium 8.6 mg/dL (8.6-10.3); Magnesium 2.1 mg/dL (1.6-2.6); Phosphorous 3.2 mg/dL (2.7-4.5); Potassium 4.1 mEq/L (3.5-5.1)
[2021-11-16] MEDS: Insulin LISPRO 300 UNITS/3 ML VIAL SUBQ SCH ×4 (08:44→20:49)
[2021-11-16] MEDS: Lactulose Oral Soln 20 GM/30 ML UDC PO SCH ×2 (09:56→20:51)
[2021-11-16] MEDS: cefTRIAXone 1,000 MG in 0.9 % Sodium Chloride 10 ML IVP SCH (09:56)
[2021-11-16] MEDS: Nystatin POWDER 30 GM BOTTLE TP SCH ×3 (09:56→20:50)
[2021-11-16 21:37] LABS: Bilirubin,Urine Negative (Negative); Blood,Urine Trace (Negative); Budding Yeast,Urine Few per hpf (None Seen); Clarity,Urine Clear (Clear); Color,Urine Yellow (Yellow); Glucose,Urine (UA) Normal (Normal); Ketones,Urine Trace mg/dL (Negative); Leukocyte Esterase,Urine Moderate (Negative); Mucus,Urine Few per lpf (None-Few); Nitrite,Urine Negative (Negative); Protein,Urine Trace mg/dL (Neg-Trace); Specific Gravity,Urine 1.024 (1.010-1.025); Squamous Epithelial Cell,Urine Moderate per hpf (None-Few); Urobilinogen,Urine Normal (Normal)
[2021-11-17 03:51] LABS: Calcium 8.4 mg/dL (8.6-10.3); Magnesium 2.1 mg/dL (1.6-2.6); Phosphorous 2.9 mg/dL (2.7-4.5); Potassium 3.7 mEq/L (3.5-5.1)
[2021-11-17] MEDS: Insulin LISPRO 300 UNITS/3 ML VIAL SUBQ SCH ×4 (07:55→21:26)
[2021-11-17] MEDS: Spironolactone 25 MG TABLET PO SCH (09:18)
[2021-11-17] MEDS: cefTRIAXone 1,000 MG in 0.9 % Sodium Chloride 10 ML IVP SCH (09:18)
[2021-11-17] MEDS: Nystatin POWDER 30 GM BOTTLE TP SCH ×3 (09:18→21:22)
[2021-11-17] MEDS: Lactulose Oral Soln 20 GM/30 ML UDC PO SCH ×2 (09:18→21:22)
[2021-11-17 21:22] LABS: Fluid Source for Albumin ASCITES
[2021-11-18] MEDS: Lactulose Oral Soln 20 GM/30 ML UDC PO SCH ×2 (08:23→20:41)
[2021-11-18] MEDS: Nystatin POWDER 30 GM BOTTLE TP SCH ×3 (08:23→20:41)
[2021-11-18] MEDS: cefTRIAXone 1,000 MG in 0.9 % Sodium Chloride 10 ML IVP SCH (08:23)
[2021-11-18] MEDS: Spironolactone 25 MG TABLET PO SCH (08:25)
[2021-11-18] MEDS: Insulin LISPRO 300 UNITS/3 ML VIAL SUBQ SCH ×4 (08:28→20:42)
[2021-11-19 07:26] VITALS: BP 97/45; PULSE 65; TEMP 97.3; O2SAT 95
[2021-11-19] MEDS: Lactulose Oral Soln 20 GM/30 ML UDC PO SCH (07:53)
[2021-11-19] MEDS: Spironolactone 25 MG TABLET PO SCH (07:53)
[2021-11-19] MEDS: cefTRIAXone 1,000 MG in 0.9 % Sodium Chloride 10 ML IVP SCH (07:53)
[2021-11-19] MEDS: Nystatin POWDER 30 GM BOTTLE TP SCH (07:54)
[2021-11-19] MEDS: Insulin LISPRO 300 UNITS/3 ML VIAL SUBQ SCH ×2 (07:54→12:45)
[2021-11-19 11:33] LABS: Adenovirus Not Detected (Not Detect); Bordetella Pertussis Not Detected (Not Detect); Chlamydophila pneumoniae Not Detected (Not Detect); Coronavirus 229E Not Detected (Not Detect); Coronavirus HKU1 Not Detected (Not Detect); Coronavirus NL63 Not Detected (Not Detect); Coronavirus OC43 Not Detected (Not Detect); Human Metapneumovirus Not Detected (Not Detect); Human Rhinovirus/Enterovirus Not Detected (Not Detect); Influenza A Subtype 2009 H1 Not Detected (Not Detect); Influenza B Not Detected (Not Detect); Mycoplasma pneumoniae Not Detected (Not Detect); Parainfluenza Virus 1 Not Detected (Not Detect); Parainfluenza Virus 2 Not Detected (Not Detect); Parainfluenza Virus 3 Not Detected (Not Detect); Parainfluenza Virus 4 Not Detected (Not Detect); Respiratory Syncytial Virus Not Detected (Not Detect); SARS-CoV-2 Not Detected (Not Detect)
== END 2021-11-19 14:40 | DRG 433 ==
LOC: PREOBSVTOIN 11:16 → SUATTDRO 12:19 → 2NENU 12:19
PROVIDERS: ADMIT Family Medicine; ATTEND Internal Medicine